=== PATIENT | female | born 1955 | race Caucasian/White ===

== ENCOUNTER 2017-03-26 23:54 | Emergency (ER) | payer OTHER ==
[2017-03-27 00:19] LABS: BASOPHIL 0.6 % (0-2); EOSINOPHIL 4.1 % (0-5); HCT 39.7 % (37.0-47.0); HGB 13.7 g/dl (12.5-16.0); LYMPHOCYTE 36.5 % (15-48); MCH 29.9 pg (25.0-31.0); MCHC 34.5 g/dL (32.0-36.0); MCV 86.7 fL (78.0-100.0); MPV 9.9 fL (6.0-9.5); NEUTROPHIL 48.8 % (41-80); PLT 280 K/uL (150-400); RBC 4.58 M/uL (4.20-5.40); RDW 13.1 % (11.5-14.0); WBC 8.6 K/uL (4.0-10.5)
[2017-03-27 00:28] LABS: INR 0.99 (0.9-1.2); PROTHROMBIN TIME 12.7 SECONDS (11.7-14.0); PTT 26.9 SECONDS (23.2-31.4)
[2017-03-27 00:38] LABS: MYOGLOBIN 21 ng/mL (26-65); TROPONIN T < 0.010 ng/mL
[2017-03-27 00:39] LABS: ALBUMIN 4.6 g/dL (3.4-4.8); BILIRUBIN - TOTAL 0.5 mg/dL (0.1-1.0); CREATININE 0.8 mg/dL (0.5-1.0); GLOBULIN (CALCULATION) 2.5 g/dL (2.2-4.2); POTASSIUM 3.8 mmol/L (3.5-5.1); TOTAL PROTEIN 7.1 g/dL (6.4-8.3)
[2017-03-27 00:51] LABS: BILIRUBIN NEGATIVE (NEGATIVE); BLOOD NEGATIVE Ery/uL (NEGATIVE); CLARITY CLEAR (CLEAR); COLOR YELLOW (YELLOW); GLUCOSE (U) TRACE mg/dL (NORMAL); KETONE (U) NEGATIVE (NEGATIVE); LEUKOCYTES 1+ Leu/uL (NEGATIVE); NITRITE NEGATIVE (NEGATIVE); PROTEIN NEGATIVE (NEGATIVE); SPECIFIC GRAVITY <=1.005 (1.001-1.030); UROBILINOGEN 0.2 mg/dL (0.2-1.0); pH 6.5 (5.0-9.0)
[2017-03-27 00:57] LABS: BACTERIA TRACE
[2017-03-27 00:58] LABS: SQUAMOUS EPITHELIAL CELLS RARE
== END 2017-03-27 02:35 | disposition other institution (70) ==
LOC: FER 23:54
PROVIDERS: Emergency Medicine
DX: I63.9 Cerebral infarction, unspecified (principal); R47.01 Aphasia; R20.2 Paresthesia of skin; R53.1 Weakness; I10 Essential (primary) hypertension; R29.702 NIHSS score 2; E11.9 Type 2 diabetes mellitus without complications; Z91.040 Latex allergy status; Z79.84 Long term (current) use of oral hypoglycemic drugs
CPT/HCPCS: 36415; 70450; 71010; 80053; 80061; 81001; 82550; 82553; 83874; 84484; 85025; 85610; 85730; 93005